=== PATIENT | male | born 1990 | race Caucasian/White ===

== ENCOUNTER 2017-05-08 07:08 | Emergency (ER) | payer OTHER ==
[~2017-05-08] VITALS: Ht 172.7 cm; Wt 70.1 kg
[2017-05-08 07:16] VITALS: TEMP 36.8; Ht 172.7 cm; Wt 70.1 kg
[2017-05-08] MEDS ORDERED: SODIUM CHLORIDE 0.9% 1000ML 1,000 ML IV STA (07:28)
--- NOTE | 2017-05-08 07:48 | EMERGENCY ROOM VISIT NOTE ---
History First contact with patient: 07:18 Chief Complaint: FLU LIKE SX Stated Complaint: COUGH, CHILLS, HOWELL, STOMACH ACHE History of Present Illness The patient is a 26 year old male who presents to the Emergency Room via private vehicle with complaints of "cough, chills, headache, stomachache". Pt. states that saturday he was working and started with sorethroat feeling it was closing and notes that it progressed to fatigue, cough with thick mucus, blood in mucus, headache, total body aches and diarrhea, burning in chest. He also notes LLQ abd pain. The patient states that his girlfriend had bronchitis just a few days ago. 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 Review of Systems A complete 10-point Review of Systems was discussed with the patient, with pertinent positives and negatives listed in the History of Present Illness. All remaining Review of Systems questions can be considered negative unless otherwise specified. Past Medical/Surgical History No pertinent. Family History No pertinent. Social History Smoking Status: Current Every Day Smoker Pt. is employed Current/Historical Medications No Active Prescriptions or Reported Meds Physical Exam Vital Signs Date Time Temp Pulse Resp B/P (MAP) Pulse Ox O2 Delivery O2 Flow Rate FiO2 17 07:16 36.8 72 18 144/83 98 Room Air Physical Exam VITAL SIGNS - Vital signs and nursing notes were reviewed. Stable. GENERAL -26-year-old male appearing his stated age who is in no acute distress. Communicates well with provider and answers questions appropriately. SKIN - Without rashes. No petechial rashes. HEAD - NC/AT. EYES - Sclera anicteric. Palpebral conjunctiva pink and moist with no injection noted. EARS - No deformities of external structures noted on gross examination bilaterally. No pain elicited with palpation of the tragus bilaterally. External auditory canals without discharge or otorrhea. Tympanic membranes pearly tirado without retraction or bulging. No fluid or purulent material visualized behind the TM. Handle of malleus, umbo, cone of light, pars tensa/ flaccid all easily visualized. NOSE - Midline and without cyanosis. No epistaxis or purulent drainage noted. Septum midline without deviation or septal hematoma noted. MOUTH/OROPHARYNX - Without perioral cyanosis. Buccal mucosa pink and moist and without leukoplakia. Tongue midline with equal elevation of palate bilaterally. No tonsillar hypertrophy, erythema, or exudates noted. Fair dentition noted. NECK - Neck with FROM. Supple to palpation. L anterior cervical lymphadenopathy noted. No nuchal rigidity. LUNGS - Chest wall symmetric without accessory muscle use, intercostals retractions, or central cyanosis. Normal vesicular breath sounds CTA B/L. No wheezes, rales, or rhonchi appreciated. CARDIAC - RRR with S1/S2. No murmur, rubs, or gallops appreciated. ABDOMEN - Abdominal contour normal without pulsations or visible masses. BS normoactive all four quadrants. Min LLQ tenderness.No palpable masses, hepatosplenomegaly, or ascites noted. Medical Decision & Procedures ER Provider Diagnostic Interpretation: CHEST 2 VIEWS ROUTINE CLINICAL HISTORY: Cough CHILLS, HEADACHE, ABDOMINAL PAIN COMPARISON STUDY: No previous studies for comparison. FINDINGS: The cardiac and mediastinal contours are normal. There is no evidence of focal pulmonary consolidation. There is no evidence of failure. No pleural effusions are visualized.[ IMPRESSION: No active disease in the chest. Electronically signed by: Jah Hankins M.D. 05/08/2017 9:04 AM Dictated Date/Time: 05/08/2017 9:03 AM Laboratory Results 05/08/17 08:00 Red Blood Count 4.69, Mean Corpuscular Volume 93.0, Mean Corpuscular Hemoglobin 31.8, Mean Corpuscular Hemoglobin Concent 34.2, Mean Platelet Volume 10.8, Neutrophils (%) (Auto) 68.2, Lymphocytes (%) (Auto) 21.0, Monocytes (%) (Auto) 9.0, Eosinophils (%) (Auto) 1.2, Basophils (%) (Auto) 0.3, Neutrophils # (Auto) 4.93, Lymphocytes # (Auto) 1.52, Monocytes # (Auto) 0.65, Eosinophils # (Auto) 0.09, Basophils # (Auto) 0.02 05/08/17 08:00 Test 05/08/17 07:40 05/08/17 08:00 Influenza Type A Antigen Neg for Influ A (NEG) Influenza Type B Antigen Neg for Influ B (NEG) White Blood Count 7.23 K/uL (4.8-10.8) Red Blood Count 4.69 M/uL (4.7-6.1) Hemoglobin 14.9 g/dL (14.0-18.0) Hematocrit 43.6 % (42-52) Mean Corpuscular Volume 93.0 fL (80-100) Mean Corpuscular Hemoglobin 31.8 pg (25-34) Mean Corpuscular Hemoglobin Concent 34.2 g/dl (32-36) Platelet Count 240 K/uL (130-400) Mean Platelet Volume 10.8 fL (7.4-10.4) Neutrophils (%) (Auto) 68.2 % Lymphocytes (%) (Auto) 21.0 % Monocytes (%) (Auto) 9.0 % Eosinophils (%) (Auto) 1.2 % Basophils (%) (Auto) 0.3 % Neutrophils # (Auto) 4.93 K/uL (1.4-6.5) Lymphocytes # (Auto) 1.52 K/uL (1.2-3.4) Monocytes # (Auto) 0.65 K/uL (0.11-0.59) Eosinophils # (Auto) 0.09 K/uL (0-0.5) Basophils # (Auto) 0.02 K/uL (0-0.2) RDW Standard Deviation 44.7 fL (36.4-46.3) RDW Coefficient of Variation 13.2 % (11.5-14.5) Immature Granulocyte % (Auto) 0.3 % Immature Granulocyte # (Auto) 0.02 K/uL (0.00-0.02) Anion Gap 8.0 mmol/L (3-11) Est Creatinine Clear Calc Drug Dose 95.8 ml/min Estimated GFR () 102.7 Estimated GFR (Non- 88.6 BUN/Creatinine Ratio 13.4 (10-20) Calcium Level 8.6 mg/dl (8.5-10.1) Total Bilirubin 0.4 mg/dl (0.2-1) Aspartate Amino Transf (AST/SGOT) 21 U/L (15-37) Alanine Aminotransferase (ALT/SGPT) 27 U/L (12-78) Alkaline Phosphatase 69 U/L (45-117) Total Protein 7.1 gm/dl (6.4-8.2) Albumin 3.6 gm/dl (3.4-5.0) Globulin 3.5 gm/dl (2.5-4.0) Albumin/Globulin Ratio 1.0 (0.9-2) Lyme Disease IgG Antibody NEG (NEG) Lyme Disease IgM Antibody NEG (NEG) Medical Decision Patient was seen and evaluated as above. He presents to us today with what appears to be viral URI and gastroenteritis-like symptoms. He is well on exam. There is no concern leukocytosis or anemia. Metabolic panels unremarkable for acute process. Negative for flu, strep pharyngitis and Lyme. He was hydrated with a liter of normal saline. He notes fatigue, I believe secondary to viral illness. I will provide him a work excuse secondary to his occupation for the next 3 days. He is to follow-up if worsening. He was educated upon management, educated upon worrisome symptoms which to return, had questions answered. Discharge, and was discharged home in good condition. In evaluation treatment this patient following differential diagnoses were entertained: Strep pharyngitis, mononucleosis, viral URI, gastroenteritis, among others. Impression Primary Impression: Upper respiratory infection Additional Impression: Gastroenteritis Departure Information Dispostion Home / Self-Care Condition GOOD Prescriptions No Active Prescriptions or Reported Meds Referrals No Doctor, Assigned (PCP) Patient Instructions My [facility] Additional Instructions You were seen in the emergency Department for cough, chills, headache and stomachache. At this time your blood work does not show any emergent sign of infection. I suspect he likely have a viral upper respiratory tract infection and GI bug. I recommend rest, stay well hydrated with water and Gatorade but no soda. I do recommend refraining from work for the next 2 days to allow your body to rest. I recommend follow-up with family doctor in the next few days for recheck. Please return with any new/concerning symptoms. Problem Qualifiers
[2017-05-08 08:16] LABS: BASO % 0.3 %; BASO ABS # 0.02 K/uL (0-0.2); COMPLETE YES; EOS % 1.2 %; HEMATOCRIT 43.6 % (42-52); IG% 0.3 %; LYMPH ABS # 1.52 K/uL (1.2-3.4); MEAN CORPUSCULAR HEMOGLOBIN 31.8 pg (25-34); MEAN CORPUSCULAR HGB CONC 34.2 g/dl (32-36); MEAN PLATELET VOLUME 10.8 fL (7.4-10.4); NEUT % 68.2 %; PLATELET COUNT 240 K/uL (130-400); RED BLOOD COUNT 4.69 M/uL (4.7-6.1); WHITE BLOOD COUNT 7.23 K/uL (4.8-10.8)
[2017-05-08 08:33] LABS: BUN/CREATININE RATIO 13.4 (10-20); CALCIUM 8.6 mg/dl (8.5-10.1); CREATININE 1.15 mg/dl (0.60-1.40); POTASSIUM 3.7 mmol/L (3.5-5.1)
--- NOTE | 2017-05-08 09:05 | DIAGNOSTIC IMAGING REPORT ---
CHEST 2 VIEWS ROUTINE CLINICAL HISTORY: Cough CHILLS, HEADACHE, ABDOMINAL PAIN COMPARISON STUDY: No previous studies for comparison. FINDINGS: The cardiac and mediastinal contours are normal. There is no evidence of focal pulmonary consolidation. There is no evidence of failure. No pleural effusions are visualized.[ IMPRESSION: No active disease in the chest. Electronically signed by: Jah Hankins M.D. 05/08/2017 9:04 AM Dictated Date/Time: 05/08/2017 9:03 AM
[2017-05-08 09:06] LABS: LYME DISEASE AB IGG NEG (NEG); LYME DISEASE AB IGM NEG (NEG)
[2017-05-08 09:34] VITALS: BP 128/88; PULSE 86; O2SAT 98
== END 2017-05-08 09:37 | disposition home or self-care (01) ==
LOC: C.EDB 07:10
DX: J06.9 Acute upper respiratory infection, unspecified (principal); K52.9 Noninfective gastroenteritis and colitis, unspecified; F17.200 Nicotine dependence, unspecified, uncomplicated